=== PATIENT | female | born 1970 | race American Indian/Alaskan Native ===

== ENCOUNTER 2020-03-23 08:58 | Outpatient (CLI) | payer BC ==
--- NOTE | 2020-03-23 10:03 | Mammography Report ---
DEXA BONE DENSITY SCAN INDICATION / CLINICAL INFORMATION: PROLONGED DEPO USE. 49 years Female COMPARISON: None available. LUMBAR SPINE (L1-L4): - Bone mineral density (BMD) = 0.915 g/cm2. - T-score = -2.1 - Z-score = -1.4 FEMORAL NECKS: - Left femoral neck Bone mineral density (BMD) = 0.795 g/cm2. - T-score = -1.1 - Z-score = -0.7 IMPRESSION: 1. Bone density is below the expected range for age. BMD Reporting Guidelines (ISCD, 2015) BMD Reporting in Postmenopausal Women and in Men Age 50 and Older * T-scores are preferred. * The WHO densitometric classification is applicable. BMD Reporting in Females Prior to Menopause and in Males Younger Than Age 50 * Z-scores, not T-scores, are preferred. This is particularly important in children. * A Z-score of -2.0 or lower is defined as below the expected range for age, and a Z-score above -2. 0 is within the expected range for age. * Osteoporosis cannot be diagnosed in men under age 50 on the basis of BMD alone. * The WHO diagnostic criteria may be applied to women in the menopausal transition. http://www.iscd.org/official-positions/2625-yoab-rgrppkqo-positions-adult/ Signer Name: Elliot Blanco MD Signed: 03/23/2020 9:58 AM Workstation Name: [email or web address]
== END 2020-03-23 08:59 | disposition home or self-care (01) ==
LOC: SPVWC 08:58
PROVIDERS: ATTEND Obstetrics & Gynecology
DX: M85.9 Disorder of bone density and structure, unspecified (principal)
CPT/HCPCS: 77080